=== PATIENT | female | born 1965 | race Caucasian/White ===

== ENCOUNTER → 2016-11-26 | Outpatient (CLI) | payer BC ==
[2016-11-26 11:59] LABS: Appearance,Urine Cloudy (Clear); Bacteria,Urine Rare /hpf; Bilirubin,Urine Negative (Negative); Glucose,Urine (UA) Negative (Negative); Ketones,Urine Negative (Negative); Leukocyte Esterase,Urine Negative (Negative); Mucus,Urine Rare /hpf; Nitrite,Urine Negative (Negative); PH, Urine 7.5 (5.0-8.0); Particle Count 1907; Protein,Urine Negative (Negative); Specific Gravity,Urine 1.007 (1.001-1.035); Squamous Epithelial Cell,Urine 5 /hpf (0-4); UA Billing (MACRO vs. MICRO) MICRO; Urobilinogen,Urine <2.0 mg/dL (<2.0); WBC,Urine 1 /hpf (0-5)
[2016-11-26 12:03] LABS: ALT 39 U/L (9-52); AST 25 U/L (14-36); Alkaline Phosphatase 103 U/L (38-126); Anion Gap 6 mmol/L; Blood Urea Nitrogen 11 mg/dL (7-17); Calcium 9.3 mg/dL (8.4-10.2); Carbon Dioxide 28 mmol/L (22-30); Chloride 104 mmol/L (98-107); Cholesterol 195 mg/dL (<200); Glucose 96 mg/dL (74-99); HDL Cholesterol 58 mg/dL (40-60); Non-African American GFR(MDRD) >60 (>60 ml/min/1.73 sqM); Potassium 4.6 mmol/L (3.5-5.1); Sodium 138 mmol/L (137-145); Total Bilirubin 0.5 mg/dL (0.2-1.3); Total Protein 6.8 g/dL (6.3-8.2)
[2016-11-26 12:04] LABS: Aty Lym Flag Slight; CH 29.8; CHCM 33.6; HCT 46.8 % (34.0-46.0); HDW 2.31; HGB 14.9 gm/dL (11.4-16.0); MCH 28.4 pg (25.0-35.0); MCHC 31.8 g/dL (31.0-37.0); MCV 89.3 fL (80.0-100.0); Mean Platelet Volume 7.8; RBC 5.24 m/uL (3.80-5.40); RDW 14.9 % (11.5-15.5); WBC 6.5 k/uL (3.8-10.6)
[2016-11-26 12:54] LABS: Vitamin B12 395 pg/mL (239-931)
[2016-11-26 13:14] LABS: Add Differential Manual Differential
[2016-11-26 13:16] LABS: Manual Review Performed; Nucleated Red Blood Cells 0 /100 WBC (0-0); RBC Morphology Normal; Total Cells Counted 100
== END ==
LOC: LABWHC1 11:17
PROVIDERS: ATTEND Internal Medicine
DX: I10 Essential (primary) hypertension (principal); R53.83 Other fatigue; Z98.84 Bariatric surgery status; E55.9 Vitamin D deficiency, unspecified
CPT/HCPCS: 36415; 80053; 80061; 81001; 82306; 82607; 84443; 85025

== ENCOUNTER 2017-01-19 08:40 | Day surgery (SDC) | payer BC ==
[2017-01-17 13:14] VITALS: BMI 29.0
[~2017-01-19 08:40] MED LIST: LACTATED RINGERS 1,000 ML IV SCH
[2017-01-19 09:41] VITALS: RESP 16; TEMP 98.4
[2017-01-19] MEDS ORDERED: LIDOCAINE 1% 20 ML VIAL (10MG/ML) FOR IV START INTRADERMA ONE (09:42)
[2017-01-19] MEDS ORDERED: PROPOFOL 10 MG/ML 20 ML VIAL IV ONE (10:34)
[2017-01-19] MEDS ORDERED: LIDOCAINE 1% INJ 10MG/ML (20 ML MDV) ONE (10:34)
[2017-01-19] MEDS ORDERED: fentaNYL (PF) 50 MCG/ML 2 ML AMP ONE (10:34)
[2017-01-19 11:28] VITALS: BP 118/72; PULSE 74
--- NOTE | 2017-01-19 13:42 | P.PCN ---
Date of Procedure: 01/19/17 Procedure(s) Performed: Procedure: 1. Esophagogastroduodenoscopy and biopsy. 2. Total colonoscopy. Preoperative diagnosis: Hemoccult-positive stools. Postoperative diagnosis: 1. S/P gastric bypass surgery with minimal inflammation in the gastric remnant. 2. Normal colonoscopy. 3. Biopsies obtained from the small intestine, gastric remnant and esophagus. Preparation: HalfLytely prep. Sedation: Was provided by anesthesia. Brief clinical history: The patient is a 51-year-old female who is referred for this evaluation because of positive stools test for occult blood. The patient has history of gastric bypass surgery. She has occasional episodes of abdominal discomfort and diarrhea depending on what she eats, otherwise, she has no significant abdominal symptoms, bleeding or anemia. This would be her first colonoscopy. Procedure: With the patient on her left lateral decubitus position and after informed consent and adequate sedation, I passed the Olympus-GIF 160 video upper endoscope through the cricopharyngeus down the esophagus. GE junction was around 40 cm from the incisors and there was a very small sliding hiatal hernia then we encountered a small gastric remnant. The patient had prior gastric bypass surgery. The gastric remnant showed minimal erythema and friability. There were no erosions or ulcers or strictures including the level of anastomosis with the small bowel. The small bowel was examined for a good distance and it appeared normal. Because of her symptoms, I obtained biopsies from the small intestine, gastric remnant and esophagus then the endoscope was withdrawn and I proceeded with the colonoscopy. Perianal area did not show any fissures or fistulas. There were no masses felt on digital rectal examination. The Olympus CFQ 160L video colonoscope was then inserted in the rectum in the usual fashion and advanced to the cecum. The mucosa appeared healthy. There were no obvious polyps or tumors or any obvious diverticular disease. I retroflexed the endoscope in the rectum before the endoscope was withdrawn. The patient tolerated the procedure well. Plan: The patient was reassured. Will await biopsy results. She will follow- up with you as planned. I recommended repeat screening colonoscopy in 10 years.
== END 2017-01-19 11:50 | disposition home or self-care (01) ==
LOC: ORWHC2ENDO 08:40
DX: R19.5 Other fecal abnormalities (principal); R19.7 Diarrhea, unspecified; K29.50 Unspecified chronic gastritis without bleeding; K20.9 Esophagitis, unspecified; I10 Essential (primary) hypertension; F39 Unspecified mood [affective] disorder; G43.909 Migraine, unspecified, not intractable, without status migrainosus; Z98.84 Bariatric surgery status; Z79.899 Other long term (current) drug therapy; Z86.718 Personal history of other venous thrombosis and embolism; Z86.711 Personal history of pulmonary embolism; Z88.5 Allergy status to narcotic agent
CPT/HCPCS: 45378; 43239; 81025; 88305; 88342; J2001; J3010; J2704

== ENCOUNTER 2019-06-29 11:28 | Emergency (ER) | payer BC ==
[2019-06-29 11:32] VITALS: BP 127/90; PULSE 73; RESP 18; TEMP 98.6
[2019-06-29] MEDS ORDERED: HYDROcodone/APAP 5-325MG 1 EACH TAB PO STA (11:43)
[2019-06-29] MEDS ORDERED: ONDANSETRON ODT 4 MG TAB PO STA (11:43)
--- NOTE | 2019-06-29 12:01 | XR ---
EXAMINATION TYPE: XR chest 1V DATE OF EXAM: 06/29/2019 HISTORY: fall, pain. REFERENCE: NONE. FINDINGS: The lungs are clear. Pleural spaces are clear. Heart size is normal. There is no pneumothor ax. No definite osseous lesion is seen. IMPRESSION: NO ACUTE INTRATHORACIC DISEASE.
--- NOTE | 2019-06-29 12:03 | XR ---
EXAMINATION TYPE: XR knee complete LT , 3 VIEWS DATE OF EXAM ORDERED: 06/29/2019 HISTORY: fall, pain. COMPARISON: None. FINDINGS: There is an air-fluid level or fat fluid level within the suprapatellar bursa. There is a fracture through the midportion of the patella. This is minimally displaced. No additional fracture i s seen. IMPRESSION: MINIMALLY DISPLACED FRACTURE PATELLA WITH A LIPOHEMARTHROSIS. CODE A: INITIAL ENCOUNTER FOR CLOSED FRACTURE.
--- NOTE | 2019-06-29 12:04 | ED ---
Lower Extremity Injury HPI - General Chief Complaint: Extremity Injury, Lower Stated Complaint: fall L knee injury, Time Seen by Provider: 06/29/19 11:32 Source: patient, RN notes reviewed Mode of arrival: wheelchair Limitations: no limitations - History of Present Illness Initial Comments: This a 54-year-old female presents emergency Department with chief complaint of trip and fall. Patient states she tripped over [employer] and landed directly on the corner of a concrete step. Patient states she has severe left knee pain her tetanus is up-to-date. Patient states there is a minor abrasion noted. Patient denies any head injury. Patient states she crossed her arms across her chest and landed on the ground. She states it felt the neck w henever. She does not complain of any head, neck injury no back pain. No upper extremity injuries - Related Data Home Medications Medication Instructions Recorded Confirmed Lisinopril [Zestril] 10 mg PO DAILY 09/06/13 01/19/17 amLODIPine BESYLATE [Norvasc] 5 mg PO DAILY 09/09/13 01/19/17 Sertraline HCl [Zoloft] 200 mg PO DAILY 01/17/17 01/19/17 Previous Rx's Medication Instructions Recorded Hydrocodone/Acetaminophen [[place] 1 tab PO Q6HR PRN #12 tab 06/29/19 5-325] Ondansetron Odt [Zofran Odt] 4 mg PO Q8HR PRN #10 tab 06/29/19 Allergies Allergy/AdvReac Type Severity Reaction Status Date / Time codeine Allergy Vomiting Verified 06/29/19 11:32 Review of Systems ROS Statement: Those systems with pertinent positive or pertinent negative responses have been documented in the HPI. ROS Other: All systems not noted in ROS Statement are negative. 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 pt states has "small opening in stomach" from bypass surgery. states was told "no blind NG tube"(pt to discuss with Dr Dylon mario). states daughter had problem in recovery where she was "packed in ice" (has not heard term malignant hyperthermia) Past Psychological History: No Psychological Hx Reported Smoking Status: Current every day smoker Past Alcohol Use History: Occasional Past Drug Use History: None Reported - Past Family History Mother Family Medical History: No Reported History General Exam Limitations: no limitations General appearance: alert, in no apparent distress Head exam: Present: atraumatic, normocephalic, normal inspection Eye exam: Present: normal appearance, PERRL, EOMI. Absent: scleral icterus, conjunctival injection, periorbital swelling ENT exam: Present: normal exam, normal oropharynx, mucous membranes moist Neck exam: Present: normal inspection, full ROM. Absent: tenderness, meningismus, lymphadenopathy Respiratory exam: Present: normal lung sounds bilaterally, chest wall tenderness (Minimal tenderness anterior chest wall). Absent: respiratory distress, wheezes, rales, rhonchi, stridor Cardiovascular Exam: Present: regular rate, normal rhythm, normal heart sounds. Absent: systolic murmur, diastolic murmur, rubs, gallop, clicks GI/Abdominal exam: Present: soft, normal bowel sounds. Absent: distended, tenderness, guarding, rebound, rigid Extremities exam: Present: other (There is moderate swelling, ecchymosis and very minimal superficial abrasion noted, legs are neurovascular intact there is no laxity noted though she has severe tenderness over the patella remaining extremity exam within normal limits with no acute findings.) Neurological exam: Present: alert, oriented X3, CN II-XII intact, reflexes normal. Absent: motor sensory deficit Skin exam: Present: warm, dry, intact, normal color. Absent: rash Course Vital Signs 06/29/19 11:30 Temperature 98.6 F Pulse Rate 73 Respiratory 18 Rate Blood Pressure 127/90 O2 Sat by Pulse 99 Oximetry Medical Decision Making - Medical Decision Making 54-year-old female presents emergency department for fall, left knee injury. X- ray shows evidence of mild displaced patellar fracture. Patient was placed in knee immobilizer discharged in stable condition with pain control. She'll follow-up with orthopedics associate as she seen in the past. Patient does have crutches at home to use for partial weightbearing as tolerated. Return parameters were discussed. Disposition Clinical Impression: Fall, Closed fracture of left patella Disposition: HOME SELF-CARE Condition: Stable Instructions (If sedation given, give patient instructions): Patellar Fracture (ED) Additional Instructions: Please return to the Emergency Department if symptoms worsen or any other concerns. Prescriptions: Hydrocodone/Acetaminophen [[place] 5-325] 1 tab PO Q6HR PRN #12 tab PRN Reason: Pain Ondansetron Odt [Zofran Odt] 4 mg PO Q8HR PRN #10 tab PRN Reason: Nausea Is patient prescribed a controlled substance at d/c from ED?: Yes When asked, does pt state using other controlled substances?: No If prescribed controlled substance>3 days was MAPS reviewed?: Prescribed <3 Days If opioid is for acute pain is fill amount 7 days or less?: Yes If Rx opioid, was Start Talking consent form obtained?: Yes Referrals: Felix Han MD [Primary Care Provider] - 1-2 days Leonides Hernandez MD [STAFF PHYSICIAN] - 1-2 days Time of Disposition: 12:09
== END 2019-06-29 12:42 | disposition home or self-care (01) ==
LOC: EC 11:28
DX: S82.002A Unspecified fracture of left patella, initial encounter for closed fracture (principal); I10 Essential (primary) hypertension; F17.200 Nicotine dependence, unspecified, uncomplicated; Z79.899 Other long term (current) drug therapy; Z86.718 Personal history of other venous thrombosis and embolism; Z86.711 Personal history of pulmonary embolism; Z98.84 Bariatric surgery status; Z88.5 Allergy status to narcotic agent; W01.0XXA Fall on same level from slipping, tripping and stumbling without subsequent striking against object, initial encounter
CPT/HCPCS: 73562; 71045; 99283; L1830

== ENCOUNTER → 2020-11-06 | Day surgery (SDC) | payer BC ==
[~2020-11-06] MED LIST changes: +DEXAMETHASONE SOD PHOSPHATE 4 MG/ML 1 ML VIAL IV ONE; +HYDROcodone/APAP 7.5-325MG 1 EACH TAB ONE; +HYDROcodone/APAP 7.5-325MG 1 EACH TAB PO ONE; +LIDOCAINE 1% (10MG/ML) FOR IV START INTRADERMA PRN; +LIDOCAINE 1% INJ 10MG/ML (20 ML MDV) ONE; +MIDAZOLAM 2 MG/2 ML VIAL IV PRN; +MIDAZOLAM 2 MG/2 ML VIAL IVP ONE; +ONDANSETRON 4 MG/2 ML VIAL IVP ONE; +ONDANSETRON 4 MG/2 ML VIAL ONE; +PROPOFOL 10 MG/ML 20 ML VIAL IV ONE; +SUCCINYLCHOLINE CHLORIDE 100 MG/5 ML SYR IV ONE; +ePHEDrine SULFATE/0.9% NACL/PF 50 MG/5 ML SYRINGE IV ONE; +fentaNYL (PF) 50 MCG/ML 2 ML AMP IVP ONE; +fentaNYL (PF) 50 MCG/ML 2 ML AMP ONE
[2020-11-06] MEDS: HYDROmorphone 0.5 MG/0.5 ML SYRINGE IVP PRN ×2 (11:10→11:21)
--- NOTE | 2020-11-06 11:19 | P.OP ---
Date of Procedure: 11/06/20 Preoperative Diagnosis: 1. Achilles insertional tendinitis right ankle 2. Posterior calcaneal spur right foot 3. Gastroc equinus right leg Postoperative Diagnosis: 1. Same 2. Same 3. Same Procedure(s) Performed: 1. Secondary repair of right Achilles tendon with calcaneal reattachment 2. Gastroc recession right leg 3. Excision of calcaneal spur right foot Implants: Arthrex Achilles speed bridge Anesthesia: FRANA Surgeon: Damon Mackey Estimated Blood Loss (ml): 3 Pathology: none sent Condition: stable Disposition: PACU Indications for Procedure: Severe Achilles insertional calcification and tendinitis. Patient did not respond to conservative treatment. Operative Findings: Severe thickening of the Achilles tendon at the calcaneal insertion. Extensive calcification of the insertion of the Achilles tendon on the calcaneus. Description of Procedure: Prior to the patient being brought to the operating room, anesthesia administered a nerve block on the right lower extremity utilizing ultrasonic guidance and placed in the patient under mild sedation. Then the patient was brought into the operating room. Timeout was taken to confirm correct patient identifiers, correct procedure, and correct site of surgery. When all staff was in agreement with the timeout, the patient was induced and placed under general anesthesia. The patient was then rolled onto the operating room table in the prone position. Once anesthesia was satisfied with the position of the patient, a well-padded tourniquet was placed on the right thigh and then the right leg was prepped and draped in the usual manner. The right leg was exsanguinated and the tourniquet inflated to 250 mmHg Attention was first directed to the posterior leg approximately 3-4 cm distal to the gastroc muscle belly. Midline incision was made and deepened down to the subcutaneous tissue careful to identify, avoid, and retract any neurovascular structures and cauterize any bleeding vessels. Blunt dissection was then contin ued down to level of the deep fascia. A small opening was made in the deep fascia and a blunt instrument inserted to protect the underlying neurovascular structures. Then the deep fascia was incised and then finger dissection was used to separate the deep fascia from the underlying gastroc aponeurosis. Then a transverse incision was made through the aponeurosis from straight medial to lateral taking care to avoid as much damage as possible to underlying muscle belly. Once completed the ankle was dorsiflexed and a 1.5-2 cm gap was noted in the area of the resection. The wound is then thoroughly irrigated with saline. Subcutaneous closure was done with 4-0 Monocryl. And skin closure was done with subcutaneous running closure utilizing a 30 Stratafix. Then attention directed over the Achilles insertion where a lazy S incision was made starting on the medial side of the Achilles tendon and then coursing across the area of the insertion and ending laterally. The incision was deepened down to the saphenous tissue careful to identify, avoid, and retract any neurovascular structures and cauterize any bleeding vessels. Dissection was then carried down to the peritenon. And then the subcutaneous layer along with the skin was reflected off the Achilles tendon one layer. Incisions were made in the lateral and medial aspects of the Achilles tendon at the insertion and then the Achilles was detached from the calcaneus and one flap. There is significant calcification from the calcaneus as well as within the body of the tendon from the insertion point. An osteotome was utilized to remove all abnormal calcification from the posterior aspect of the calcaneus at the Achilles insertion. Once completed a rasp was used to smooth the roughened edges. The skin was brought into reapproximation and it was noted that there was no abnormal protrusion of the calcaneus. Then the insertion point of the Achilles tendon was sharply debrided to remove any abnormal tendinous tissue as well as significant calcification. Once preparation was completed clamps were placed in the distal end of the Achilles tendon was then placed under tension while holding the ankle at 90. It was brought out under tension until it ended over the posterior aspect of the calcaneus within the skin marker was used to draw line indicating the insertion point. The tendon was then retracted and then the drill holes for the Arthrex Achilles speed bridge were made. the proximal holes were drilled first which were approximate 1 cm from the drawn insertion line on the medial and lateral aspects of the calcaneus. The holes were tapped and then the Arthrex swivel locks were inserted and the anchors advanced into the bone to proper depth. Once both were in place the Achilles was again brought down to the line of the insertion on the posterior aspect of the calcaneus. The sutures from the proximal anchors were then passed through the Achilles tendon and then the needles were removed. The distal drill holes were then completed on the medial lateral aspects of the calcaneus 1 cm distal to the drawn line for the Achilles insertion. The holes were then tapped. Utilizing the described technique for the speed bridge one suture from each anchor was then fed through another 4.75 swivel lock anchor and then with the ankle in 90 and proper tensioning of the Achilles tendon the anchor was in serted into the distal drill hole and advanced into place locking the tendon down to the posterior aspect of the calcaneus with the suture. A second drill hole was done in a similar fashion with one arm of the suture from each anchor being placed into the drill hole utilizing proper tension and then the anchor advanced locking the suture in place. Then the Achilles was checked for strength and there was full range of motion and there was no apparent loosening of the tendon. The suture arms were then cut and then the wound is thoroughly irrigated with saline. Subcutaneous closure was then done with 4-0 Monocryl and skin closure done with kecia. A jumpstart dressings applied over the posterior calcaneal incision only an Adaptic over the calf. A bulky dry dressings applied and then the tourniquet was released and capillary refill return to all digits on the right foot. A well-padded, well molded plaster posterior mold/sugar tong splint was applied to the right leg and allowed to dry while holding the ankle neutral position. The patient tolerated above procedure and anesthesia well which recovery vital signs stable.
[2020-11-06 11:24] VITALS: TEMP 97.8
--- NOTE | 2020-11-06 12:00 | P.ANPRN ---
Procedure Note - Anesthesia - Nerve Block Performed Right Adductor Canal Time Out Performed: Yes (08:56) Date of Procedure: 11/06/20 Procedure Start Time: 56 Procedure Stop Time: :07 Location of Patient: PreOp Indication: Acute Post-Operative Pain, Requested by Surgeon (Dr Mackey) Sedation Type: Sedate with meaningful contact maintained Preparation: Sterile Prep Position: Supine Catheter: None Needle Types: Pajunk Needle Gauge: 21 Ultrasound used to visualize needle placement: Yes Ultrasound used to observe medication spread: Yes Injectate: 0.5% Ropivacaine (see comment for volume) (15cc + 10cc PFNormal saline) Blood Aspirated: No Pain Paresthesia on Injection Noted: No Resistance on Injection: Normal Image Stored and Saved: Yes Events: Uneventful and Well Tolerated
--- NOTE | 2020-11-06 12:03 | P.ANPRN ---
Procedure Note - Anesthesia - Nerve Block Performed Right Popliteal Time Out Performed: Yes Date of Procedure: 11/06/20 Procedure Start Time: : Procedure Stop Time: :18 Location of Patient: PreOp Indication: Acute Post-Operative Pain, Requested by Surgeon (Dr Mackey) Sedation Type: Sedate with meaningful contact maintained Preparation: Sterile Prep Position: Left Lateral Catheter: None Needle Types: Pajunk Needle Gauge: 21 Ultrasound used to visualize needle placement: Yes Ultrasound used to observe medication spread: Yes Injectate: 0.5% Ropivacaine (see comment for volume) (15cc + 5 cc PFNormal saline) Blood Aspirated: No Pain Paresthesia on Injection Noted: No Resistance on Injection: Normal Image Stored and Saved: Yes Events: Uneventful and Well Tolerated
[2020-11-06 12:50] VITALS: RESP 16
[2020-11-06 13:53] VITALS: BP 140/88; PULSE 70
== END | disposition home or self-care (01) ==
LOC: OR 07:29
PROVIDERS: ATTEND Podiatrist
DX: M76.61 Achilles tendinitis, right leg (principal); M77.31 Calcaneal spur, right foot; I10 Essential (primary) hypertension; Z86.718 Personal history of other venous thrombosis and embolism; Z86.711 Personal history of pulmonary embolism; F39 Unspecified mood [affective] disorder; F17.210 Nicotine dependence, cigarettes, uncomplicated; G43.909 Migraine, unspecified, not intractable, without status migrainosus; M19.90 Unspecified osteoarthritis, unspecified site; Z79.899 Other long term (current) drug therapy
CPT/HCPCS: 27654; 28119; 27687; 64447; 81025; 64445; 76942; C1713; J2250; J1100; J0690; J2405; J2001; J3010; J0330; J2704; J1170

== ENCOUNTER → 2023-07-05 | Outpatient (CLI) | payer BC ==
--- NOTE | 2023-07-05 18:33 | MM ---
Reason for Exam: Screening (asymptomatic). Last mammogram was performed 1 year(s) and 1 month(s) ago. Patient History: Menarche at age 14. First Full-Term at age 26. Postmenopausal. Hormonal Contraceptives for 8 years from age 17 until age 25. 05/12/2008, Cancelled Left Mammotome on the left side. Risk Values: Stephani 5 year model risk: 1.4%. NCI Lifetime model risk: 8.7%. Prior Study Comparison: 12/03/2013 Bilateral Screening Mammogram, [facility]. 01/29/2016 Bilateral Screening Mammogram, [facility]. 05/20/2022 Bilateral MG screening mammo w CAD, [facility]. Tissue Density: There are scattered areas of fibroglandular density. Findings: Analyzed By CAD. The pattern is symmetrical. Stable nodules within the 6:00 anterior position right breast. No significant interval changes are evident. No suspicious groups of microcalcifications, spiculated or lobular masses, architectural distortion or other secondary signs of malignancy are mammographically apparent. Overall Assessment: Benign, BI-RAD 2 Management: Screening Mammogram of both breasts in 1 year. A negative mammogram report should not preclude additional follow up of suspicious palpable abnormalities. Patient should continue monthly self breast exam. A clinical breast exam by your physician is recommended on an annual basis and results should be correlated with mammographic findings. Note on Stephani scores and lifetime risk: 1. A Stephani score greater than 3% is considered moderate risk. If this is the case, consider specialist referral to assess eligibility for a risk reducing agent. 2. If overall lifetime risk for the development of breast cancer is 20% or higher, the patient may qualify for future screening with alternating mammogram and breast MRI. Electronically signed and approved by: Bartolome Cross D.O. Radiologis
== END | disposition home or self-care (01) ==
LOC: RADMAMWWP 14:47
PROVIDERS: ATTEND Family Medicine
DX: Z12.31 Encounter for screening mammogram for malignant neoplasm of breast (principal); Z78.0 Asymptomatic menopausal state
CPT/HCPCS: 77067

== ENCOUNTER 2024-03-02 20:43 | Emergency (ER) | payer BC ==
[2024-03-02 20:51] VITALS: TEMP 98.2
[2024-03-02] MEDS: LABETALOL 5 MG/ML VIAL MDV IVP STA (21:42)
--- NOTE | 2024-03-02 21:43 | ED ---
General Adult HPI - General Chief complaint: Extremity Problem,Nontraumatic Stated complaint: R Leg Numbness Time Seen by Provider: 03/02/24 21:01 Source: patient Mode of arrival: ambulatory Limitations: no limitations - History of Present Illness Initial comments: Patient is a 59-year-old female the past medical history of hypertension, prior DVT/PE presenting today for right sided numbness. Patient states she began to notice her symptoms this past Monday evening. She felt decreased sensation in her right lower extremity and unsteadiness. She then traveled to [place] via bus on which is about an 8-hour drive and over the last 2 days has noticed decrease sensation along the right side of her face right side of her right upper extremity and right lower extremity. This encompasses the entirety of both extremities. It does not appear to be in a dermatomal distribution. She states she feels like her foot is swollen however it is not actually swollen. She denies any injuries. Denies headache, neck pain or back pain. Denies any recent trauma or falls. Currently denies any dizziness, chest pain, shortness of breath, fevers or chills abdominal pain nausea vomiting black or bloody stools. She does state that she feels she has also noticed urinary incontinence- when she gets up to the bathroom she will find a wet spot in her underwear without having noticed she urinated. The blood thinners and when she previously had a DVT it was after a knee surgery. She does not have any known clotting disorders. She takes hydrochlorothiazide and Norvasc for her hypertension every morning however does note that she frequently forgets taking it. - Related Data Home Medications Medication Instructions Recorded Confirmed lisinopriL [Zestril] 10 mg PO DAILY 09/06/13 11/06/20 amLODIPine BESYLATE [Norvasc] 5 mg PO DAILY 09/09/13 11/06/20 Sertraline HCl [Zoloft] 200 mg PO DAILY 01/17/17 11/03/20 Acetaminophen Tab [Tylenol Tab] 1,000 mg PO Q6HR PRN 06/29/19 11/03/20 Previous Rx's Medication Instructions Recorded HYDROcodone/APAP 7.5-325MG [[place] 1 tab PO Q6HR PRN #30 tab 11/06/20 7.5-325] Allergies Allergy/AdvReac Type Severity Reaction Status Date / Time codeine Allergy Vomiting Verified 03/02/24 20:51 Review of Systems ROS Statement: Those systems with pertinent positive or pertinent negative responses have been documented in the HPI. ROS Other: All systems not noted in ROS Statement are negative. Past Medical History Past Medical History: Deep Vein Thrombosis (DVT), Hypertension, Musculoskeletal Disorder, Osteoarthritis (OA), Pulmonary Embolus (PE) Additional Past Medical History / Comment(s): migraines, DVT, PE after arthroscopy 2004, fell & fx. left kneecap >year ago-no surg. 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 pt states has "small opening in stomach" from bypass surgery. states was told "no blind NG tube", states daughter had problem in recovery where she was "packed in ice" (has not heard term malignant hyperthermia) Past Psychological History: No Psychological Hx Reported Smoking Status: Current every day smoker Past Alcohol Use History: None Reported Past Drug Use History: None Reported - Past Family History Mother Family Medical History: No Reported History General Exam - General Exam Comments Initial Comments: PE: CONSTITUTIONAL: No apparent distress, well appearing SKIN: Warm, dry, no jaundice, hives or petechiae EYES: Pupils are equally round, extraocular movements intact without nystagmus, clear conjunctiva, non-icteric sclera HENT: Normocephalic, atraumatic, moist mucus membranes, oropharynx clear without exudates NECK: , Full range of motion, normal appearance PULMONARY: Clear to auscultation without wheezes, rhonchi, or rales, normal excursion, no accessory muscle use and no stridor CARDIOVASCULAR: Regular rate, rhythm, normal S1 and S2. No appreciated murmurs, rubs or gallops. Strong radial pulses with intact distal perfusion. No lower extremity edema GASTROINTESTINAL: Soft, active bowel sounds throughout, non-tender, non- distended, no palpable masses, no rebound or guarding. No hepatosplenomegaly GENITOURINARY: Normal Kaleigh, RN at bedside as color developer, intact perineal sensation, intact rectal tone MUSCULOSKELETAL: Extremities have no gross deformity, no edema, redness, or swelling. No calf swelling. No midline spinal TTP. NEUROLOGIC:_a/o x 3, GCS 15, normal mentation and speech. Cranial nerves: II (visual campoverde without defects), III, IV and (extraocular movements are intact, pupils are equal with normal reaction to light), V normal jaw opening however decree sensation to light touch of the right face VII (no facial droop), IX and X (normal palate movement, midline uvula, normal voice), XI (symmetrical shoulder shrug and lateral head rotation against resistance), XII (midline tongue protrusion). Motor strength is 5/5 in all extremities. No abnormal movements. Normal muscle tone. Decreased sensation to light touch along the right upper and right lower extremity compared to left upper and left lower extremity no cerebellar signs ([id number], [id number], and rapid alternating movements are normal) PSYCHIATRIC:_normal mood and affect, thought process is clear and linear Limitations: no limitations Course Vital Signs 03/02/24 03/02/24 03/02/24 20:44 21:39 22:15 Temperature 98.2 F Pulse Rate 88 81 86 Respiratory 16 18 18 Rate Blood Pressure 216/140 210/137 252/119 O2 Sat by Pulse 100 99 Oximetry 03/02/24 03/02/24 03/02/24 22:28 22:32 22:37 Temperature Pulse Rate 75 76 Respiratory 18 16 Rate Blood Pressure 234/125 212/127 200/114 O2 Sat by Pulse 98 Oximetry 03/02/24 03/02/24 03/02/24 22:41 22:43 22:46 Temperature Pulse Rate Respiratory Rate Blood Pressure 154/93 159/92 156/91 O2 Sat by Pulse Oximetry 03/02/24 03/02/24 03/02/24 22:51 22:57 23:08 Temperature Pulse Rate 81 84 78 Respiratory 16 Rate Blood Pressure 148/91 149/97 160/95 O2 Sat by Pulse 98 Oximetry 03/02/24 03/02/24 03/02/24 23:11 23:16 23:32 Temperature Pulse Rate 81 Respiratory 16 Rate Blood Pressure 152/93 147/96 142/91 O2 Sat by Pulse 97 Oximetry - Reevaluation(s) Reevaluation #1: I was alerted by CT staff that pt appeared to have intracerebral hemorrhage on CT brain. On my assessment there is a focused area of what appears to be blood in the left hemisphere on CT brain. Clevidipine ordered for goal blood pressure less than 160 systolic. I updated the patient to findings and the plan for transfer to [facility]. Patient is agreeable plan of care. 03/02/24 22:22 EKG Findings - EKG Comments: EKG Findings:: Sinus rhythm, 82 bpm OH interval 148 ms QRS duration 90 ms, QT/QTc 394/433 ms, normal axis, no ST elevations or depressions, no delta waves, no Brugada pattern Medical Decision Making - Medical Decision Making Was pt. sent in by a medical professional or institution (, PA, RETAIL BUYER, urgent care, hospital, or fci...) When possible be specific @ -No Did you speak to anyone other than the patient for history (EMS, parent, family, police, friend...)? What history was obtained from this source @ -Patient's at bedside assisted providing history, stating that he note d the patient looked unsteady Monday evening Did you review nursing and triage notes (agree or disagree)? Why? @ -I reviewed and agree with nursing and triage notes Were old charts reviewed (outside hosp., previous admission, EMS record, old EKG, old radiological studies, urgent care reports/EKG's, fci records)? Report findings @Medical records reviewed patient is prescribed 10 mg hydrochlorothiazide 5 mg Norvasc daily Differential Diagnosis (chest pain, altered mental status, abdominal pain women, abdominal pain men, vaginal bleeding, weakness, fever, dyspnea, syncope, headache, dizziness, GI bleed, back pain, seizure, CVA, palpatations, mental health, musculoskeletal)? @ -Differential CVA Ischemic stroke, hemorrhagic stroke, brain tumor, atypical migraine, Wernicke's encephalopathy, seizure, multiple sclerosis, meningitis, encephalitis, hypoglycemia, Guillain-Montoya, electrolytes disturbance, myasthenia gravis.... This is not meant to be an all-inclusive list EKG interpreted by me (3pts min.). @ -As above X-rays interpreted by me (1pt min.). @No cardiomegaly, no consolidations or pleural effusions, aortic contour appears within normal limits/no wide mediastinum CT interpreted by me (1pt min.). @Left sided intracerebral hemorrhage on CT brain U/S interpreted by me (1pt. min.). @ -None done What testing was considered but not performed or refused? (CT, X-rays, U/S, labs)? Why? @ -None What meds were considered but not given or refused? Why? @ -None Did you discuss the management of the patient with other professionals (professionals i.e. DrLynn, PA, RETAIL BUYER, lab, RT, psych nurse, elementary school social worker, gravel inspector, teacher, uniform patrol police officer, caser up)? Give summary @ Case discussed with Dr. Tucker, [facility], please see below Was smoking cessation discussed for >3mins.? @ -No Was critical care preformed (if so, how long)? @Yes, 45 minutes Were there social determinants of health that impacted care today? How? (Homelessness, low income, unemployed, alcoholism, drug addiction, transportation, low edu. Level, literacy, decrease access to med. care, skilled nursing, re hab)? @ -No Was there de-escalation of care discussed even if they declined (Discuss DNR or withdrawal of care, Hospice)? @no What co-morbidities impacted this encounter? (DM, HTN, Smoking, COPD, CAD, Cancer, CVA, ARF, Chemo, Hep., AIDS, mental health diagnosis, sleep apnea, morbid obesity)? @ -Hypertension Was patient admitted / discharged? Hospital course, mention meds given and route, prescriptions, significant lab abnormalities, going to OR and other pertinent info. @ -Transferred to [facility]- this is a pleasant 59-year-old female presenting today for 3 to 4 days of right sided numbness. Physical exam significant for decreased sensation to light touch of the right face, right upper and lower extremity. A stroke alert was not called because patient's deficits have been ongoing for more than [address] brain CTA, labs chest x-ray. Ordered 20 mg IV Labetolol for patient's blood pressure as systolic blood pressure 236 on my assessment. Acute to subacute left sdied basal ganglion intracerebral hemorrhage on CT brain identified. Cleviprex ordered. Patient updated to findings and plan of care for transfer to [facility] for further treatment. Patient agreeable / wplan of care. Discussed with Dr. Tucker, neurology [facility]. Recommends goal to systolic blood pressure between 130 and 150 and accepts patient for transfer. Prior to transfer BP well controlled on cleviprex gtt, 141/92 at time of transfer. Patient transferred in stable condition. Undiagnosed new problem with uncertain prognosis? @ -No Drug Therapy requiring intensive monitoring for toxicity (Heparin, Nitro, Insulin, Cardizem)? Cleviprex Were any procedures done? @ -No Diagnosis/symptom? Left sided intracerebral hemorrhage Acute, or Chronic, or Acute on Chronic? @ acute Uncomplicated (without systemic symptoms) or Complicated (systemic symptoms)? @ complicated Side effects of treatment? @ -No Exacerbation, Progression, or Severe Exacerbation? @ -No Poses a threat to life or bodily function? How? (Chest pain, USA, PA, pneumonia, PE, COPD, DKA, ARF, appy, cholecystitis, CVA, Diverticulitis, Homicidal, Suicidal, threat to staff... and all critical care pts) @Yes if allowed to continue unmonitored could lead to coma and - Lab Data Result diagrams: 03/02/24 21:07 03/02/24 21:07 Lab Results 03/02/24 03/02/24 03/02/24 Range/Units 21:07 21:07 21:07 WBC 7.6 (3.8-10.6) k/uL RBC 5.21 (3.80-5.40) m/uL Hgb 12.3 (11.4-16.0) gm/dL Hct 38.3 (34.0-46.0) % MCV 73.5 L (80.0-100.0) fL MCH 23.6 L (25.0-35.0) pg MCHC 32.1 (31.0-37.0) g/dL RDW 16.5 H (11.5-15.5) % Plt Count 279 (150-450) k/uL MPV 7.1 Neutrophils % 60 % Lymphocytes % 28 % Monocytes % 6 % Eosinophils % 3 % Basophils % 1 % Neutrophils # 4.5 (1.3-7.7) k/uL Lymphocytes # 2.1 (1.0-4.8) k/uL Monocytes # 0.4 (0-1.0) k/uL Eosinophils # 0.3 (0-0.7) k/uL Basophils # 0.1 (0-0.2) k/uL Hypochromasia Slight Anisocytosis Slight Microcytosis Moderate PT 10.1 (10.0-12.5) sec INR 0.9 (<1.2) APTT 22.3 (22.0-30.0) sec Sodium 138 (137-145) mmol/L Potassium 3.9 (3.5-5.1) mmol/L Chloride 106 (98-107) mmol/L Carbon Dioxide 24 (22-30) mmol/L Anion Gap 8 mmol/L BUN 16 (7-17) mg/dL Creatinine 0.70 (0.52-1.04) mg/dL Est GFR (CKD-EPI)AfAm >90 (>60 ml/min/1.73 sqM) Est GFR (CKD-EPI)NonAf >90 (>60 ml/min/1.73 sqM) Glucose 104 H (74-99) mg/dL Calcium 9.0 (8.4-10.2) mg/dL Total Bilirubin 0.6 (0.2-1.3) mg/dL AST 33 (14-36) U/L ALT 17 (4-34) U/L Alkaline Phosphatase 97 (38-126) U/L Creatine Kinase 155 H (30-135) U/L Troponin I (0.000-0.034) ng/mL Total Protein 7.3 (6.3-8.2) g/dL Albumin 4.3 (3.5-5.0) g/dL Urine Color Urine Appearance (Clear) Urine pH (5.0-8.0) Ur Specific [place] (1.001-1.035) Urine Protein (Negative) Urine Glucose (UA) (Negative) Urine Ketones (Negative) Urine Blood (Negative) Urine Nitrite (Negative) Urine Bilirubin (Negative) Urine Urobilinogen (<2.0) mg/dL Ur Leukocyte Esterase (Negative) Urine Opiates Screen (NotDetected) Ur Oxycodone Screen (NotDetected) Urine Methadone Screen (NotDetected) Ur Barbiturates Screen (NotDetected) U Tricyclic Antidepress (NotDetected) Ur Phencyclidine Scrn (NotDetected) Ur Amphetamines Screen (NotDetected) U Methamphetamines Scrn (NotDetected) U Benzodiazepines Scrn (NotDetected) Urine Cocaine Screen (NotDetected) U Marijuana (THC) Screen (NotDetected) 03/02/24 03/02/24 03/02/24 Range/Units 21:07 21:50 21:50 WBC (3.8-10.6) k/uL RBC (3.80-5.40) m/uL Hgb (11.4-16.0) gm/dL Hct (34.0-46.0) % MCV (80.0-100.0) fL MCH (25.0-35.0) pg MCHC (31.0-37.0) g/dL RDW (11.5-15.5) % Plt Count (150-450) k/uL MPV Neutrophils % % Lymphocytes % % Monocytes % % Eosinophils % % Basophils % % Neutrophils # (1.3-7.7) k/uL Lymphocytes # (1.0-4.8) k/uL Monocytes # (0-1.0) k/uL Eosinophils # (0-0.7) k/uL Basophils # (0-0.2) k/uL Hypochromasia Anisocytosis Microcytosis PT (10.0-12.5) sec INR (<1.2) APTT (22.0-30.0) sec Sodium (137-145) mmol/L Potassium (3.5-5.1) mmol/L Chloride (98-107) mmol/L Carbon Dioxide (22-30) mmol/L Anion Gap mmol/L BUN (7-17) mg/dL Creatinine (0.52-1.04) mg/dL Est GFR (CKD-EPI)AfAm (>60 ml/min/1.73 sqM) Est GFR (CKD-EPI)NonAf (>60 ml/min/1.73 sqM) Glucose (74-99) mg/dL Calcium (8.4-10.2) mg/dL Total Bilirubin (0.2-1.3) mg/dL AST (14-36) U/L ALT (4-34) U/L Alkaline Phosphatase (38-126) U/L Creatine Kinase (30-135) U/L Troponin I <0.012 (0.000-0.034) ng/mL Total Protein (6.3-8.2) g/dL Albumin (3.5-5.0) g/dL Urine Color Colorless Urine Appearance Clear (Clear) Urine pH 6.5 (5.0-8.0) Ur Specific [place] 1.009 (1.001-1.035) Urine Protein Negative (Negative) Urine Glucose (UA) Negative (Negative) Urine Ketones Negative (Negative) Urine Blood Negative (Negative) Urine Nitrite Negative (Negative) Urine Bilirubin Negative (Negative) Urine Urobilinogen <2.0 (<2.0) mg/dL Ur Leukocyte Esterase Negative (Negative) Urine Opiates Screen Not Detected (NotDetected) Ur Oxycodone Screen Not Detected (NotDetected) Urine Methadone Screen Not Detected (NotDetected) Ur Barbiturates Screen Not Detected (NotDetected) U Tricyclic Antidepress Not Detected (NotDetected) Ur Phencyclidine Scrn Not Detected (NotDetected) Ur Amphetamines Screen Not Detected (NotDetected) U Methamphetamines Scrn Not Detected (NotDetected) U Benzodiazepines Scrn Not Detected (NotDetected) Urine Cocaine Screen Not Detected (NotDetected) U Marijuana (THC) Screen Not Detected (NotDetected) Disposition Clinical Impression: Intracerebral hemorrhage, Hypertensive emergency Disposition: OTHER INSTITUTION NOT DEFINED Referrals: Terry Monte MD [Primary Care Provider] - 1-2 days - Out of Hospital Transfer - Req. Specs Out of Hospital Transfer - Requested Specifics: Other Emergency Center ([place])
[2024-03-02 21:55] LABS: Anisocytosis Slight; Basophils # (A) 0.1 k/uL (0-0.2); Basophils % (A) 1 %; Eosinophils # (A) 0.3 k/uL (0-0.7); Eosinophils % (A) 3 %; HCT 38.3 % (34.0-46.0); HGB 12.3 gm/dL (11.4-16.0); Hypochromasia Slight; Lymphocytes # (A) 2.1 k/uL (1.0-4.8); Lymphocytes % (A) 28 %; MCH 23.6 pg (25.0-35.0); MCHC 32.1 g/dL (31.0-37.0); MCV 73.5 fL (80.0-100.0); Mean Platelet Volume 7.1; Microcytosis Moderate; Monocytes # (A) 0.4 k/uL (0-1.0); Monocytes % (A) 6 %; Neutrophils # (A) 4.5 k/uL (1.3-7.7); Neutrophils % (A) 60 %; Platelet Count 279 k/uL (150-450); RBC 5.21 m/uL (3.80-5.40); RDW 16.5 % (11.5-15.5); WBC 7.6 k/uL (3.8-10.6)
[2024-03-02 22:05] LABS: ALT 17 U/L (4-34); AST 33 U/L (14-36); African American GFR (CKD) >90 (>60 ml/min/1.73 sqM); Albumin 4.3 g/dL (3.5-5.0); Alkaline Phosphatase 97 U/L (38-126); Anion Gap 8 mmol/L; Blood Urea Nitrogen 16 mg/dL (7-17); Carbon Dioxide 24 mmol/L (22-30); Chloride 106 mmol/L (98-107); Creatine Kinase 155 U/L (30-135); Glucose 104 mg/dL (74-99); Non-African American GFR(CKD) >90 (>60 ml/min/1.73 sqM); Potassium 3.9 mmol/L (3.5-5.1); Sodium 138 mmol/L (137-145); Total Bilirubin 0.6 mg/dL (0.2-1.3); Total Protein 7.3 g/dL (6.3-8.2)
--- NOTE | 2024-03-02 22:08 | XR ---
EXAMINATION TYPE: XR chest 2V DATE OF EXAM: 03/02/2024 10:03 PM COMPARISON: None. CLINICAL INDICATION: Female, 59 years old with history of right sided numbness, TECHNIQUE: XR chest 2V view(s) obtained. FINDINGS: The heart size is normal. The pulmonary vasculature is normal. The lungs are clear. IMPRESSION: 1. No acute pulmonary process. [facility], , 03/02/2024 10:06 PM
[2024-03-02 22:12] LABS: INR 0.9 (<1.2)
[2024-03-02 22:13] LABS: Partial Thromboplastin Time 22.3 sec (22.0-30.0); Prothrombin Time 10.1 sec (10.0-12.5)
[2024-03-02] MEDS: CLEVIDIPINE BUTYRATE 25 MG in EMPTY BAG 1 BAG IV SCH (22:19)
[2024-03-02 22:25] LABS: Appearance,Urine Clear (Clear); Bilirubin,Urine Negative (Negative); Blood,Urine Negative (Negative); Color,Urine Colorless; Glucose,Urine (UA) Negative (Negative); Ketones,Urine Negative (Negative); Leukocyte Esterase,Urine Negative (Negative); Nitrite,Urine Negative (Negative); PH, Urine 6.5 (5.0-8.0); Protein,Urine Negative (Negative); Specific Gravity,Urine 1.009 (1.001-1.035); Urobilinogen,Urine <2.0 mg/dL (<2.0)
[2024-03-02] MEDS: LORazepam 2 MG/ML INJ IV STA ×2 (22:25→23:08)
--- NOTE | 2024-03-02 22:30 | CT ---
EXAMINATION TYPE: CT brain wo con DATE OF EXAM: 03/02/2024 10:16 PM COMPARISON: None. CLINICAL INDICATION: Female, 59 years old with history of Right sided numbness, acute, stroke suspect ed, Patient reports right leg numbness x2 days. patient reports a tight feeling in her right leg. den ies injury. hx of DVT and PE. Denies pain at this time. TECHNIQUE: CT of the brain is performed utilizing 3 mm thick sections through the posterior fossa and 3 mm thick sections through the remaining calvarium. Study is performed within 24 hours of arrival to the hospital. Contrast used: mL of , (none if empty) CT DLP: Combined DLP of 1515.1 mGycm, Automated exposure control for dose reduction was used. FINDINGS: There is a 1.4 x 2.1 cm hyperdensity within the left basal ganglion compatible with acute hemorrhage. Vague slight hypodensity surrounds this area this may be becoming subacute. Significant mass effect on the adjacent brain is not evident. The ventricles appear appropriate. No temporal horn dilatation is evident. No midline shift is evident. Remaining portions of the visualized brain appear unremarkable. No mass lesion is evident. No acute infarcts are evident. Ventricles and sulci are appropriate for the patient age. There is mucosal thickening with anterior ethmoid air cells left slightly greater than right. Remaini ng paranasal sinuses and air cells are clear. IMPRESSION: 1. Acute to subacute left basal ganglia hemorrhage. Report was called to the emergency room physici an by Dr. Cross by telephone 1025 hours 03/02/2024 [facility], , 03/02/2024 10:28 PM
[2024-03-02 22:34] VITALS: RESP 16
--- NOTE | 2024-03-02 22:37 | CT ---
EXAMINATION TYPE: CT angio head neck DATE OF EXAM: 03/02/2024 10:26 PM COMPARISON: None. CLINICAL INDICATION: Female, 59 years old with history of right sided numbness x 3 days, Patient repo rts right leg numbness x2 days. patient reports a tight feeling in her right leg. denies injury. hx o f DVT and PE. Denies pain at this time. TECHNIQUE: CTA scan is performed with axial images are obtained, coronal and sagittal reformatted serena ges are reviewed. 3-D reconstructed images are created on an independent workstation and reviewed. S ource images are reviewed. NASCET criteria was used in interpretation of this exam? Contrast used:65ml mL of Isovue 370 with IV Contrast, (none if empty) Oral contrast used: (none if empty) CT DLP: Combined DLP of 1515.1 mGycm, Automated exposure control for dose reduction was used. FINDINGS: Carotid/Vascular Structures: There is a 3 vessel arch. Common carotid arteries bifurcate into internal and external carotid arteries without significant charan w limiting stenosis. Vertebral arteries are codominant. Internal carotid arteries and vertebral arteries are patent to the skull base. Cervical of [place]: Vertebral basilar system appears normal. Posterior cerebral vasculature is unrema rkable. Internal carotid arteries bifurcate into A1 and M1 segments. Right A1 segment appears hypopla stic. A2 segments are normal. The anterior communicating artery is patent. The right posterior communicating artery is patent. The left posterior communicating artery is absent. There may be a larger caliber lower density vessel extending from the proximal left M1 segment toward s the patient's known hemorrhage, example image series 506 image 34. Suspicious flow to the patient's known hemorrhage is not otherwise identified IMPRESSION: 1. No flow-limiting stenosis bilateral carotid bifurcations. 2. Normal [place] of [place] 3. Left basal ganglion hemorrhage [facility], , 03/02/2024 10:35 PM
[2024-03-02 22:46] LABS: Amphetamine Screen,Urine Not Detected (NotDetected); Barbiturate Screen,Urine Not Detected (NotDetected); Benzodiazepines Screen,Urine Not Detected (NotDetected); Cocaine Screen,Urine Not Detected (NotDetected); Methadone Screen, Urine Not Detected (NotDetected); Opiate Screen,Urine Not Detected (NotDetected); Oxycodone Screen, Urine Not Detected (NotDetected); Phencyclidine Screen,Urine Not Detected (NotDetected); Tricyclic Antidepressant,Urine Not Detected (NotDetected); Urn Cannabinoid Scrn Not Detected (NotDetected)
[2024-03-02 23:34] VITALS: BP 142/91; PULSE 81
== END 2024-03-02 23:42 | disposition other institution (70) ==
LOC: EC 20:43
DX: I61.0 Nontraumatic intracerebral hemorrhage in hemisphere, subcortical (principal); I10 Essential (primary) hypertension; F17.200 Nicotine dependence, unspecified, uncomplicated; Z88.5 Allergy status to narcotic agent
CPT/HCPCS: 36415; 93005; 80053; 82550; 84484; 85025; 85610; 85730; 81003; 80306; 71046; 70496; 70450; 70498; 99291; 96365; 96375 ×2; 96376; J2060; C9248; Q9967; J1920